=== PATIENT | male | born 1970 | race Caucasian/White ===

== ENCOUNTER → 2023-09-18 13:18 | Outpatient (REF) | payer MEDICARE, MEDICAID, SELFPAY | LOC: PAVMRI 13:18 | PROVIDERS: ATTENDING PHYSICIAN Specialist; FAMILY PHYSICIAN Family Medicine | DX: M54.16 Radiculopathy, lumbar region (principal) | CPT/HCPCS: 72148 ==

== ENCOUNTER 2024-05-18 11:43 | Emergency (ER) | payer MEDICARE, MEDICAID, SELFPAY ==
[2024-05-18 12:07] VITALS: BP 117/73
[2024-05-18 12:35] LABS: % Basophils 0.3 % (0-2); % Eosinophils 3.5 % (0-6); % Immature Granulocytes 0.3 % (0-0.5); % Lymphocytes 28.1 % (20.5-51.1); % Monocytes 9.8 % (1.7-9.3); Absolute Eosinophils 0.1 10^3/uL (0-0.7); Absolute Lymphocytes 1.1 10^3/uL (1.2-3.4); Absolute Monocytes 0.4 10^3/uL (0.1-0.6); Absolute Neutrophils 2.3 10^3/uL (1.4-6.5); Hematocrit 39.5 % (39.0-52.0); Hemoglobin 13.3 g/dL (13.0-18.0); Mean Corp Hgb Conc. 33.7 g/dL (33.0-37.0); Mean Corpuscular Hgb 27.9 pg (27.0-31.0); Mean Platelet Volume 8.5 fL (7.4-10.4); Nucleated Red Blood Cells % 0 % (-); Platelet Count 219 10^3/uL (130-400); Red Blood Cell Count 4.76 10^6/uL (4.70-6.10); Red Cell Dist. Width 13.1 % (11.5-14.5)
[2024-05-18 12:57] LABS: COVID-19 Antigen Negative (Negative)
[2024-05-18 13:20] LABS: ALT (SGPT) 15 U/L (0-50); AST (SGOT) 20 U/L (17-59); Albumin 4.1 g/dl (3.5-5.0); Alkaline Phosphatase 53 U/L (38-126); Blood Urea Nitrogen 9 mg/dl (9-20); Calcium 9.2 mg/dl (8.4-10.2); Carbon Dioxide 25 mmol/L (22-30); Chloride 98 mmol/L (98-107); Glucose 82 mg/dl (70-99); Potassium 3.6 mmol/L (3.5-5.1); Sodium 132 mmol/L (135-145); Total Bilirubin 0.1 mg/dl (0.2-1.3); Total Protein 6.5 g/dl (6.3-8.2); eGFR > 60.00
[2024-05-18 16:39] VITALS: BP 142/92; BMI 15.8
--- NOTE | 2024-05-18 16:44 | EDRN ---
Donnie RODRIGUEZ currently at the pts bedside
--- NOTE | 2024-05-18 16:48 | ED.GENMED ---
History of Present Illness
General
Chief Complaint: Cold/Flu/URI Symptoms
Source: patient
Exam Limitations: none
Time Seen by Provider: 05/18/24 16:22
Nursing documentation reviewed up to this point in time: agreed with
History of Present Illness
History of Present Illness:
53-year-old male presenting to the emergency department today with concerns of upper respiratory symptoms over the past 4 days. Denies any significant shortness of breath or chest pain. No ongoing fevers at this point.
Past History
Past History
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
ED Past Surgical History: Cardiac
Social History
Tobacco: Former smoker
Alcohol: None
Drug: None
Personal: Single
Living: assisted living
Employment: Not employed
Family History
Family History: Other (Mother and father with diabetes and hypertension)
Review of Systems
Review of Systems
Allergies reviewed?: Yes
All Other Systems: ROS reviewed and negative except as documented in HPI and ROS
Phy Exam
Physical Exam
Physical Exam:
GENERAL: Alert , in no apparent distress
EYE: pupils equal and reactive
NECK: Supple, no significant adenopathy.
ENT: Swollen boggy nasal turbinates o/p clr, mmm.
CARDIAC: Regular rate and rhythm .
LUNGS: Clear breath sounds bilaterally, no acute respiratory distress, no wheezes/rales/rhonchi
ABDOMEN: Soft, without focal tenderness, no r/g, no cvat
NEUROLOGICAL: Alert and oriented, no focal neuro deficits
SKIN: Warm and dry, skin intact.
MUSCULOSKELETAL: No edema, well perfused.
PSYCH: Normal and appropriate interaction.
Course
Orders/Labs/Results
Orders:
Orders
05/18/24 12:17
COVID-19 Antigen Urgent
Source: Nasal Swab
Complete Blood Count/With Diff Urgent
Comprehensive Metabolic Panel Urgent
INF RAPID [Influenza A+B Rapid Molecular] Urgent
[facility] Source: Nasal Swab
Specimen Description:
Abnormal Lab Results
05/18/24
12:17
WBC 4.0 L 10^3/uL
(4.8-10.8)
Absolute Lymphs (auto) 1.1 L 10^3/uL
(1.2-3.4)
Monocytes % 9.8 H %
(1.7-9.3)
Sodium 132 L mmol/L
(135-145)
Creatinine 0.5 L mg/dL
(0.7-1.3)
Total Bilirubin 0.1 L mg/dl
(0.2-1.3)
05/18/24 12:17
05/18/24 12:17
Vital Signs
Initial and Last Documented VS:
Initial Vital Signs
Temp Pulse Resp BP Pulse Ox
98.2 F 87 20 117/73 97
05/18/24 12:07 05/18/24 12:07 05/18/24 12:07 05/18/24 12:07 05/18/24 12:07
Last Documented Vital Signs
Temp Pulse Resp BP Pulse Ox
98.6 F 81 20 142/92 96
05/18/24 16:39 05/18/24 16:39 05/18/24 16:39 05/18/24 16:39 05/18/24 16:39
MDM/Problems Addressed
MDM/Problems Addressed:
53-year-old male presenting to the emergency department today with concerns of upper respiratory symptoms over the past 4 days. Here no signs of complications patient appears well flu test is positive other labs unremarkable other than slightly low
sodium level which was notified. Otherwise table for outpatient management return precautions given. Patient out of the window for Tamiflu.
*Critical Care Note
Total Time (30-74mins, 75-104mins- exclusive of procedures): Not Applicable
ED Attending Note
-
Portions of this chart may have been created with voice recognition software.� Occasional wrong word or��sound alike� substitutions may have occurred due to the inherent limitations of voice recognition software.
Discharge Plan
Departure
Patient Disposition: Home (Routine Discharge)
Date of Disposition: 05/18/24
Time of Disposition: 16:51
Patient with high blood pressure during this ER visit?: No
Condition: Good
Covid-19: Not Applicable
Discharge Problem:
Influenza
Instructions: Flu
Prescriptions:
New
Robitussin Cough and Cold CF 2.5-5-50 mg/5 mL liquid
15 ml PO Q4H PRN (Reason: Cough) Qty: 118 0RF
No Action
risperidone 1 MG tablet
8 mg PO BID
warfarin [Jantoven] 7.5 MG tablet
7.5 - 12 mg PO DAILY
famotidine 40 MG tablet
40 mg PO DAILY
metoprolol succinate 100 MG tablet extended release 24 hr
150 mg PO DAILY
quetiapine [Seroquel] 200 MG tablet
200 mg PO BID
divalproex 500 MG tablet,delayed release (DR/EC)
500 mg PO BID
lactase [Lactaid] 3,000 UNIT tablet,chewable
9,000 unit PO PRN PRN (Reason: prn)
fenofibrate nanocrystallized 145 MG tablet
145 mg PO DAILY
albuterol sulfate 90 mcg/actuation HFA aerosol inhaler
2 puff inhalation Q6H PRN (Reason: shortness of breath or wheezing) Qty: 6.7 0RF
Activity Restrictions/Additional Instructions:
You came to the emergency department today with concerns of upper respiratory symptoms. You were found to have the flu. Please take the prescribed occasions and stay hydrated. Return for any worsening, new or concerning symptoms.
Interventions
Interventions:
*Risk Screen - Suicide Last Done: 05/18/24 12:07
*General Assessment Last Done: 05/18/24 16:39
*Neglect/Abuse Screening Last Done: 05/18/24 16:39
ED- Fall Risk Assessment Last Done: 05/18/24 16:39
*ED COVID-19 Vaccine History Last Done: 05/18/24 16:39
ED- Pulmonary Assessment Last Done: 05/18/24 16:39
Discharge Date and Time
Print Language: CYMRAES
== END 2024-05-18 17:02 | disposition home or self-care (01) ==
LOC: EMR 11:43
PROVIDERS: Student in an Organized Health Care Education/Training Program; EMERGENCY PHYSICIAN Emergency Medicine; FAMILY PHYSICIAN Family Medicine
DX: J10.1 Influenza due to other identified influenza virus with other respiratory manifestations (principal); Z87.891 Personal history of nicotine dependence; Z11.52 Encounter for screening for COVID-19
CPT/HCPCS: 99283; 80053; 85025; 87502; 87811

== ENCOUNTER → 2024-06-25 10:12 | Outpatient (REF) | payer MEDICARE, MEDICAID, SELFPAY | LOC: RAD 10:12 | PROVIDERS: FAMILY PHYSICIAN Family Medicine | DX: M25.569 Pain in unspecified knee (principal); M54.9 Dorsalgia, unspecified | CPT/HCPCS: 72114; 73560 ==